=== PATIENT | male | born 1975 | race Caucasian/White ===

== ENCOUNTER 2017-11-29 19:29 | Emergency (ER) | payer MEDICARE, BC, SELFPAY ==
[2017-11-29 19:43] VITALS: BP 145/77; PULSE 72; RESP 24; TEMP 36.6; O2SAT 93; BMI 48.7
--- NOTE | 2017-11-29 20:34 | XR_ITS ---
XR acute abdomen series HISTORY: ITS.REASON: constipation, pelvic pain ORDERING PHYSICIAN: Margarito Kay MD PATIENT AGE: 42 years COMPARISON: None FINDINGS: Frontal view of the chest shows no acute finding. Upright and supine views of the abdomen show a mild amount retained colonic feces. No intestinal obstruction or free air evident. No acute bony anomalies or urolithiasis. IMPRESSION: Constipation otherwise negative
[2017-11-29 21:17] LABS: Microscopic, Urine URINE MICROSCOPIC (MICROSCOPIC)
[2017-11-29 21:25] LABS: Appearance,Urine CLEAR (Clear); Bilirubin,Urine Negative (Negative); Blood, Urine Negative (Negative); Color,Urine YELLOW (Yellow); Glucose,Urine (UA) Negative (Negative); Ketones,Urine Negative (Negative); Leukocyte Esterase,Urine Negative (Negative); Nitrate,Urine Negative (Negative); Protein,Urine Negative (Negative); Specific Gravity, Urine <= 1.005 (1.005-1.030); Urobilinogen,Urine 0.2 EU/dl (0.2)
[2017-11-29 21:28] LABS: Amorphous Sediment,Urine Trace /lpf; WBC,Urine Occasional #/hpf (0-3)
--- NOTE | 2017-11-29 22:05 | HMH.EDGENADL ---
ED Disposition Clinical Impression: Hemorrhoids Qualifiers: Hemorrhoid type: unspecified Qualified Code(s): K64.9 - Unspecified hemorrhoids Disposition: Home, Self-Care Condition on Discharge: Good Instructions: Hemorrhoids Additional Instructions: Please follow up with Dr Ennis within the next 12 hrs, take the medications prescribed per instructions. Prescriptions: Etodolac [Etodolac 200mg Cap] 200 mg PO BID #20 cap Hydrocortisone Acetate [Anusol HC 30mg Supp] 30 mg RC BID #20 supp.rect Referrals: Kingsley Saxena MD [Primary Care Provider] - Ernst Ennis MD [Staff Physician] - Time of Disposition: 22:05 - Critical Care Critical Care Time: No Attestation: On 11/29/17, the high probability of a clinically significant, sudden or life threatening deterioration of the following system(s) required my full and direct attention, intervention and personal management. The time I documented below is in addition to time spent performing reported procedures but includes the following listed in this critical care notation. Medical Decision Making - Medical Records Medical records reviewed: Yes: I reviewed the patient's medical records. Vital Signs: 11/29/17 19:43 11/29/17 22:26 Temperature 97.8 F 98.4 F Temperature Source Oral Oral Pulse Rate 65 Pulse Rate [Right Brachial] 72 Respiratory Rate 24 20 Blood Pressure 148/75 Blood Pressure [Right Arm] 145/77 Blood Pressure Mean [Right Arm] 99 Blood Pressure Source Automatic Cuff Blood Pressure Source [Right Arm] Automatic Cuff Blood Pressure Position Standing Blood Pressure Position [Right Arm] Standing 02 Sat by Pulse Oximetry 93 L Oxygen Delivery Method Room Air Room Air - Lab Data Lab results reviewed: Yes: I reviewed the patient's lab results. Lab Results 11/29/17 21:08: Urine Color Yellow, Urine Appearance Clear, Urine pH 6.0, Ur Specific [place] <= 1.005, Urine Protein Negative, Urine Glucose (UA) Negative, Urine Ketones Negative, Urine Blood Negative, Urine Nitrate Negative, Urine Bilirubin Negative, Urine Urobilinogen 0.2, Ur Leukocyte Esterase Negative, Urine WBC Occasional, Amorphous Sediment Trace Orders (Tests/Meds): ED MEDICATIONS Discontinued Medications Generic Name Dose Route Start Last Admin Trade Name Freq PRN Reason Stop Dose Admin Oxycodone/Acetaminophen 1 each 11/29/17 21:23 11/29/17 21:47 Percocet 10mg/325mg Tablet PO 11/29/17 21:24 1 each ONCE ONE Administration Phenyleph/Shark Oil/Min Oil/Petrol 1 gm 11/29/17 21:22 Preparation H 0.25%-3% Oint 30gm TP 12/29/17 21:21 BIDP PRN Hemorrhoids Tramadol HCl 1 arin 11/29/17 21:22 11/29/17 21:47 Ultram Take Home Pack 50mg (10) PO 11/29/17 21:23 1 arin ONCE ONE Administration - Radiology Data #1 Image(s): Abdomen Image Reviewed: Yes I reviewed the patient's radiology image No radiological evidence of impaction, however patient appears constipated with increased fecal matter shadows over the x-ray films. - Lane Inquiry Pt receiving controlled substance: No - Reevaluation(s) Time: 22:00 Reevaluation #1: I had a lengthy discussion with patient advised him of the imperative need for him to take his suppositories, use sitz baths, take an cohc-bre-fabobxs stool softener such as Colace 100 mg p.o. twice daily, follow-up with a general surgeon for hemorrhoid band ligation (contact information provided discharge instructions). Unable to see the general surgeon timely and if problem not any better advised patient to return immediately to the emergency room for reevaluation. General Adult HPI - General Chief complaint: PAIN Stated complaint: Hemorrhoids Time Seen by Provider: 11/29/17 20:30 Mode of Arrival: Family Vehicle Source of Information: Patient Limitations: No Limitations Description of Symptoms (Recalled from ER Triage Doc. by RN): C/O HEMMORHOIDS - History of Present Illness HPI narrative: This a 42-
[2017-11-29 22:26] VITALS: BP 148/75; PULSE 65; RESP 20; TEMP 36.9; O2SAT 95
== END 2017-11-29 22:27 | disposition home or self-care (01) ==
PROVIDERS: Emergency Provider Emergency Medicine; PCP Internal Medicine Adolescent Medicine
DX: K64.4 Residual hemorrhoidal skin tags (principal); F17.210 Nicotine dependence, cigarettes, uncomplicated
CPT/HCPCS: 74021; 81001; 99203; 99281

== ENCOUNTER → 2018-08-23 13:27 | Outpatient (CLI) | payer MEDICARE, BC, SELFPAY ==
[2018-08-23 17:33] LABS: Alanine Aminotransferase 42 U/L (12-78); Albumin Level 3.6 gm/dL (3.4-5.0); Albumin/Globulin Ratio 1.1 (1.1-1.8); Alkaline Phosphatase 66 U/L (46-116); Anion Gap 13.6 mEq/L (5-15); Aspartate Amino Transferase 28 U/L (15-37); Bilirubin,Total 0.2 mg/dL (0.2-1.0); Blood Urea Nitrogen 10 mg/dL (7-18); Calcium 8.9 mg/dL (8.5-10.1); Carbon Dioxide 27 mmol/L (21.0-32.0); Chloride 103 mmol/L (98-107); Chol/HDL Ratio 6.4 (1-3.5); Cholesterol 147 mg/dL (140-200); Creatinine,Serum 0.76 mg/dL (0.70-1.30); Estimated Glomerular Filt Rate 113 ml/min (>60); GFR (African American) 137 ML/MIN (>60); Globulin 3.3 gm/dl (1.3-3.2); Glucose 109 mg/dL (74-106); HDL Cholesterol 23 mg/dL (27-67); LDL Cholesterol 54 mg/dL (0-130); Potassium 4.6 mmoL/L (3.5-5.1); Sodium 139 mmol/L (136-145); Total Protein,Serum 6.9 gm/dL (6.4-8.2); Triglycerides 352 mg/dL (30-200); VLDL Cholesterol 70 mg/dL (0-40)
== END ==
PROVIDERS: Visit Provider Internal Medicine Adolescent Medicine
DX: Z00.00 Encounter for general adult medical examination without abnormal findings (principal); E78.5 Hyperlipidemia, unspecified
CPT/HCPCS: 36415; 80053; 80061

== ENCOUNTER → 2018-08-25 15:02 | Outpatient (CLI) | payer MEDICARE, BC, SELFPAY ==
[2018-08-25 18:22] LABS: Hemoglobin A1C 5.7 % (0.0-7.0)
== END ==
PROVIDERS: Visit Provider Nurse Practitioner Family
DX: R73.9 Hyperglycemia, unspecified (principal)
CPT/HCPCS: 36415; 83036